=== PATIENT | male | born 1980 | race Asian ===

== ENCOUNTER 2023-12-13 03:00 | Emergency (ER) | payer OTHER ==
[~2023-12-13] VITALS: Ht 167.6 cm; Wt 72.6 kg
[2023-12-13 03:10] VITALS: BP 106/71; PULSE 65; RESP 14; TEMP 97.1; O2SAT 96
[2023-12-13 03:28] VITALS: BP 106/71; PULSE 65; RESP 14; TEMP 97.1; O2SAT 96
== END 2023-12-13 03:36 | disposition left against medical advice (07) ==
LOC: MED 03:00
DX: R06.02 Shortness of breath (principal); Z53.21 Procedure and treatment not carried out due to patient leaving prior to being seen by health care provider